=== PATIENT | male | born 1980 | race Caucasian/White ===

== ENCOUNTER 2023-05-24 16:46 | Emergency (ER) | payer OTHER, BC ==
[~2023-05-24] VITALS: Ht 180.3 cm; Wt 77.0 kg
[2023-05-24 16:49] VITALS: BP 146/85
== END 2023-05-24 17:49 | disposition home or self-care (01) ==
LOC: ER 16:46
DX: S20.211A Contusion of right front wall of thorax, initial encounter (principal); V98.8XXA Other specified transport accidents, initial encounter
CPT/HCPCS: 71046; 99283-25